=== PATIENT | male | born 1950 | race Caucasian/White ===

== ENCOUNTER → 2019-04-11 | Outpatient (REF) | payer MEDICARE, OTHER, SELFPAY | LOC: M LAB REF 12:28 | PROVIDERS: ATTEND Ophthalmology | DX: H01.009 Unspecified blepharitis unspecified eye, unspecified eyelid (principal) ==

== ENCOUNTER → 2023-04-08 | Outpatient (CLI) | payer MEDICARE, OTHER | LOC: M PLAIMG 14:25 | PROVIDERS: ATTEND Nurse Practitioner Family | DX: M54.12 Radiculopathy, cervical region (principal) ==

== ENCOUNTER 2024-05-16 10:20 | Emergency (ER) | payer OTHER ==
[~2024-05-16] VITALS: Ht 177.8 cm; Wt 107.4 kg
[2024-05-16 11:10] VITALS: O2SAT 97
[2024-05-16 12:33] VITALS: BP 161/76; TEMP 96.5; O2SAT 98
[2024-05-16] MEDS ORDERED: BENZ200C70 PO (12:42)
[2024-05-16] MEDS ORDERED: DOXY-441 PO (12:42)
== END 2024-05-16 12:49 | disposition home or self-care (01) ==
LOC: M ED 10:20
DX: R05.9 Cough, unspecified (principal); R68.83 Chills (without fever); E11.9 Type 2 diabetes mellitus without complications; Z88.1 Allergy status to other antibiotic agents; Z88.8 Allergy status to other drugs, medicaments and biological substances; Z79.2 Long term (current) use of antibiotics

== ENCOUNTER → 2024-09-25 | Outpatient (CLI) | payer OTHER ==
[~2024-09-25] MED LIST: BENZ200C70 PO; DOXY-441 PO
[2024-09-25 09:54] LABS: HEMATOCRIT 39.5 % (42.0-52.0); HEMOGLOBIN 13.3 g/dl (13.5-17.5); MEAN CORPUSCULAR HEMOGLOBIN 31.2 pg (27.0-33.0); MEAN CORPUSCULAR HGB CONC 33.7 g/dl (32.0-36.5); MEAN CORPUSCULAR VOLUME 92.7 fl (80.0-96.0); PLATELET COUNT, AUTOMATED 185 10^3/uL (150-450); RED BLOOD COUNT 4.26 10^6/uL (4.30-6.10)
[2024-09-25 10:12] LABS: ERYTHROCYTE SEDIMENTATION RATE 14 mm/hr (0-20)
[2024-09-25 10:16] LABS: INR 0.86
[2024-09-25 10:20] LABS: ALBUMIN 3.1 G/DL (3.2-5.2); BILIRUBIN,TOTAL 0.5 MG/DL (0.3-1.2); CALCIUM LEVEL 8.5 MG/DL (8.3-10.6); CREATININE FOR GFR 0.99 MG/DL (0.70-1.30); GLOMERULAR FILTRATION RATE 80.4 (>42); POTASSIUM SERUM 4.4 MMOL/L (3.5-5.1); TOTAL PROTEIN 5.6 G/DL (5.7-8.2)
== END ==
LOC: M RAD 08:08
PROVIDERS: ATTEND Orthopaedic Surgery
DX: Z01.818 Encounter for other preprocedural examination (principal); Z79.01 Long term (current) use of anticoagulants